=== PATIENT | female | born 1980 | race American Indian/Alaskan Native ===

== ENCOUNTER 2018-10-08 09:06 | Outpatient (CLI) | payer BC ==
--- NOTE | 2018-10-08 11:21 | XRay Report ---
ROUTINE CHEST, TWO VIEWS: HISTORY: Chronic thromboembolic pulmonary hypertension. Sternotomy wires are identified indicating interval thoracic surgery since 06/29/18. Please correlate with history. Heart and mediastinal structures are within normal limits. Normal pulmonary vascularity. The lungs are clear. No pleural effusion or pneumothorax is identified. The bony thorax is intact. IMPRESSION: Unremarkable chest x-ray.
--- NOTE | 2018-10-08 11:46 | Nuclear Medicine Report ---
LUNG SCAN, VENTILATION AND PERFUSION: History: Chronic thromboembolic pulmonary hypertension. Technique: 5mci of Tc99m MAA was infused for the perfusion images. 15mci XE 133 gas was inhaled for the ventilatory images. Correlation is made with a chest x-ray dated 10/08/18 and a previous nuclear medicine lung scan dated 06/29/18. Findings: Inhalation of Xenon gas demonstrates a normal distribution of the activity throughout both lungs. The wash out phases show no focal retention of activity. After injection of Technetium 99m macroaggregated albumin gamma camera imaging of the lungs in multiple projections demonstrates multiple, bilateral mismatched segmental perfusion defects. Perfusion defects are identified in the right upper lobe, lateral segment of the right lower lobe, posterior lingula and superior left lower lobe. The previous VQ scan was also high probability for pulmonary embolus and demonstrated more perfusion defects than on today's exam. IMPRESSION: High probability for pulmonary embolus on VQ scan. These findings were discussed with Dr. Caro at 1120 hrs.
== END 2018-10-08 09:07 | disposition home or self-care (01) ==
LOC: NM 09:06
PROVIDERS: ATTEND Internal Medicine
DX: I27.24 Chronic thromboembolic pulmonary hypertension (principal)
CPT/HCPCS: 71046; 78582; A9540; A9558

== ENCOUNTER 2019-04-08 06:39 | Day surgery (SDC) | payer BC ==
[2019-04-08] MEDS ORDERED: ASPIRIN EC 325 MG TAB PO ONE (07:22)
[2019-04-08] MEDS ORDERED: SODIUM CHLORIDE 0.9% 500 ML 500 ML IV SCH (08:00)
[2019-04-08 08:23] LABS: Basophils % (Auto) 0.7 % (0.0-1.8); Eosinophils # (Auto) 0.1 K/mm3 (0.0-0.4); Eosinophils % (Auto) 1.1 % (0.0-4.3); Hematocrit 39.9 % (30.3-42.9); Hemoglobin 12.9 gm/dl (10.1-14.3); Lymphocytes # (Auto) 1.7 K/mm3 (1.2-5.4); Lymphocytes % (Auto) 32.2 % (13.4-35.0); Mean Corpuscular HGB Conc 32 % (30-34); Mean Corpuscular Volume 81 fl (79-97); Monocytes # (Auto) 0.3 K/mm3 (0.0-0.8); Monocytes % (Auto) 6.2 % (0.0-7.3); Platelet Count 230 K/mm3 (140-440); Red Blood Count 4.94 M/mm3 (3.65-5.03); Red Cell Distribution Width 15.2 % (13.2-15.2)
[2019-04-08 08:34] LABS: INR 0.99 (0.87-1.13); Partial Thromboplastin Time 20.2 Sec. (24.2-36.6)
[2019-04-08] MEDS: MIDAZOLAM 2 MG/2 ML INJ ONE ×2 (09:08→09:26)
[2019-04-08] MEDS: fentaNYL 100 MCG/2 ML INJ ONE ×2 (09:08→09:26)
[2019-04-08] MEDS: LIDOCAINE (2%) 20 MG/1 ML VIAL 20 ML MDV INFILTRATI ONE ×3 (09:09→09:45)
[2019-04-08] MEDS: HEPARIN/NS 5000 UNIT/500ML 1,000 ML IR ONE ×2 (09:10→09:28)
[2019-04-08 09:29] LABS: BUN/Creatinine Ratio 20; Blood Urea Nitrogen 14 mg/dL (7-17); Calcium 8.9 mg/dL (8.4-10.2); Hemolysis Index 271
--- NOTE | 2019-04-08 10:03 | Short Stay Summary ---
Short Stay Documentation Date of service: 04/08/19 - History H&P: obtained from office - Allergies and Medications Current Medications: Allergies No Known Allergies Allergy (Unverified 08/03/13 18:01) Home Medications Medication Instructions Recorded Confirmed Last Taken Type Enoxaparin [Lovenox] 70 mg SQ BID 08/03/13 04/08/19 04/07/19 History 70mg Active Medications Sodium Chloride (Nacl 0.9% 500 Ml) 500 mls @ 50 mls/hr IV DIRECT YVONNE Stop: 04/08/19 17:59 - Physical exam General appearance: no acute distress Lungs: Clear to auscultation Breasts: deferred Heart: Regular rate Gastrointestinal: normal Female Genitourinary: deferred Rectal Exam: deferred Extremities: no ischemia Neurological: Normal gait - Brief post op/procedure progress note Date of procedure: 04/08/19 Pre-op diagnosis: Shortness of breath and chest pain Post-op diagnosis: same Procedure: RHC Anesthesia: MAC Findings: See report Surgeon: IRISH CRUZ Estimated blood loss: none Pathology: none Condition: stable - Hospital course Hospital course: Uneventful - Disposition Condition at discharge: Good Disposition: DC-01 TO HOME OR SELFCARE Short Stay Discharge Plan Activity: advance as tolerated Weight Bearing Status: Weight Bear as Tolerated Diet: regular Follow up with: PRIMARY CARE, [Primary Care Provider] - 7 Days
[2019-04-08 11:03] VITALS: BP 93/50
--- NOTE | 2019-04-08 12:49 | Cardiac Catherization Report ---
INDICATION: Shortness of breath, chest pain. Rule out chronic thromboembolic pulmonary hypertension. PROCEDURE PERFORMED: Right heart catheterization with hemodynamic measurement and oxygen saturation run. DESCRIPTION OF PROCEDURE: After obtaining the consent, the patient was draped using sterile technique. A 2% lidocaine was injected into the right antecubital fossa. A 6-Tongan vascular sheath was inserted over a previously inserted ____ peripheral IV line. A 6-Tongan Davenport-Jacqueline catheter was then used to measure right-sided hemodynamics and perform oxygen saturation run. No complications occurred during the procedure. Hemostasis was achieved at the end of the procedure using manual pressure. FINDINGS: HEMODYNAMICS: 1. The mean pulmonary capillary wedge pressure was 10 mmHg. 2. The pulmonary artery systolic pressure 32 mmHg and the pulmonary artery diastolic pressure 13 mmHg. The mean pulmonary artery pressure was 22 mmHg. 3. The right ventricular systolic pressure was 36 mmHg. The right ventricular end-diastolic pressure was 8 mmHg. 4. The mean right atrial pressure was 8 mmHg. 5. The PA saturation 70%, RV saturation 71%, RA saturation 71%, SVC saturation 68%, and aortic saturation 99%. 6. The Gadiel cardiac output was 5.17 L per minute with a cardiac index of 2.71 L per minute per meter squared. The thermodilution cardiac output was 4.36 L per minute with thermodilution cardiac index of 2.28 L per minute per m2. 7. The transpulmonary gradient was 12 mmHg. The pulmonary vascular resistance by Gadiel was 2.3 Wood units and the pulmonary vascular resistance by thermodilution was 2.75 Wood units. 8. Normal left and right-sided filling pressures. 9. Normal pulmonary artery pressure. 10. Normal cardiac output. 11. No evidence of an intracardiac shunt. RECOMMENDATIONS: Continue current management. JOB# [id number] MESERET/GAGAN
== END 2019-04-08 06:40 | disposition home or self-care (01) ==
LOC: CATHLABREC 06:39
PROVIDERS: ATTEND Internal Medicine
DX: R07.9 Chest pain, unspecified (principal); R06.02 Shortness of breath; I10 Essential (primary) hypertension; Z86.711 Personal history of pulmonary embolism; Z79.899 Other long term (current) drug therapy
CPT/HCPCS: 36415; 80048; 85025; 85610; 85730; 93005; 93010; 93451; 99156; C1894; J1644; J2250; J3010; J7040